=== PATIENT | male | born 2000 | race Caucasian/White ===

== ENCOUNTER 2018-11-11 08:57 | Emergency (ER) | payer SELFPAY ==
[~2018-11-11] VITALS: Ht 152.4 cm; Wt 65.0 kg
[2018-11-11 08:59] VITALS: BP 142/68; PULSE 73; RESP 18; Ht 152.4 cm; Wt 65.0 kg
[2018-11-11] MEDS ORDERED: LIDOCAINE 1% (MDV) 10 ML INJ INJ STA (09:12)
[2018-11-11] MEDS ORDERED: LIDOCAINE 1% (MPF) 5 ML VIAL INFIL ONE (09:30)
[2018-11-11] MEDS ORDERED: DIPHTH/TET/ACEL PERTUSS (ADULT) 0.5 ML VIAL IM* ONE (10:00)
--- NOTE | 2018-11-11 10:32 | ERD ---
ER Documentation Chief Complaint Chief Complaint upper li lac HPI 18-year-old male presenting with lip laceration secondary to a fall. Patient states he was working this morning with his uncle when he slipped walking up the ladder and hit his mouth on the ladder. Patient denies any loss of consciousness. Patient remembers the whole event. Patient denies any allergies to medications. Patient states his pain is only in his lip and that he did not bite his tongue and he did not pass out when he was walking up the ladder that he slipped. The patient did not fall off the ladder he slipped when he went to step up on ladder. ROS All systems reviewed and are negative except as per history of present illness. Medications Home Meds Active Scripts Ibuprofen* (Motrin*) 600 Mg Tab, 600 MG PO Q6, #30 TAB Prov:QUEENIE DASH PA-C 11/11/18 Allergies Allergies: Coded Allergies: No Known Allergy (Unverified , 11/11/18) PMhx/Soc Medical and Surgical Hx: pt denies Medical Hx, pt denies Surgical Hx Hx Alcohol Use: Yes (occasional) Hx Substance Use: No Hx Tobacco Use: No FmHx Family History: No diabetes, No coronary disease, No other Physical Exam Vitals Vital Signs Date Temp Pulse Resp B/P (MAP) Pulse Ox O2 O2 Flow FiO2 Time Delivery Rate 11/11/18 97.7 73 18 142/68 99 08:59 (92) Physical Exam GENERAL: The patient is well-appearing, well-nourished, in no acute distress HEENT:patient has approximately 6 cm laceration extending from his left nostril to the inside of his upper lip. The laceration does not go through the lip completely. Patient has approximately 3 cm laceration on the left lateral side of nostril. There is no deformity to the nostril only laceration. The patie nt's nose is not deviated. Not swollen. No presence of mao signs or raccoon eyes. Patient has no contusions or abrasions to the back of his head patient's maxillofacial bones are intact no crepitus on palpation no pain on palpation. Atraumatic. Conjunctivae are pink. Pupils equal, round, and reactive to light. There is no scleral icterus. Tympanic membranes clear bilaterally. Oropharynx clear. No nystagmus or photophobia. NECK: C-spine is soft and supple. There is no meningismus. There is no cervical lymphadenopathy. NEUROLOGIC: Alert and oriented. Cranial nerves II through V. Motor strength in all 4 extremities with 5 out of 5 strength. Sensation grossly intact. Normal speech and gait. Results 24 hrs Current Medications Medications Dose Sig/Nam Start Time Status Last (Trade) Ordered Route PRN Stop Time Admin Dose Reason Admin Lidocaine 10 ml ONCE STAT 11/11/18 DC HCl INJ 09:12 11/11/18 (Lidocaine 09:33 1% (Mdv) 10 ml) Lidocaine 5 ml ONCE ONCE 11/11/18 DC (Xylocaine INFIL 09:30 11/11/18 1% (Mpf)) 09:31 Diphtheria/ 0.5 ml ONCE ONCE 11/11/18 DC 11/11/18 Tetanus/Acell IM* 10:00 11/11/18 10:30 Pertussis 10:01 (Adacel) Procedures/MDM ED course: Lidocaine 1% Wound irrigation Laceration repair to the lip Laceration repair to left lateral nostril. Tdap given The patient was stable throughout the ED course. The patient and/or family informed of laboratory and diagnostic imaging results throughout the ED course. Procedures: LACERATION: 6cm laceration extending from the left nostril to the patient's upper lip. Patient has second laceration approximately 3 cm on the left lateral side of his nostril. The patient's wounds were anesthetized with 1% lidocaine. The wound was thoroughly irrigated with normal saline. 3 4oh ethanol sutures were placed in the left lateral nostril. The wound was closed. 8 40 ethanol sutures were placed in the patient's lip extending from left nostril to the inside of his lip. The patient was verbally consented prior to procedure. Patient was explained the risks, benefits and alternatives to this procedure. Location: Lip Length: 6 cm Anesthesia: local 1% lidocaine, 5 cc Inspection: The wound was thoroughly explored and no foreign bodies, deep tissue, tendon or structural injuries were noted. Repair: The area was prepared and draped in the usual sterile manner with the wound exposed. [#] sutures were placed with good wound closure and wound approximation. Bleeding was minimal. The patient tolerated the procedure well with no complications. The wound was dressed with bacitracin and sterile gauze. The patient was neurovascularly intact post-procedure. Post-procedural wound care was discussed with the patient. Location: Left lateral nostril Length: 3cm Anesthesia: local 1% lidocaine, 5 cc Inspection: The wound was thoroughly explored and no foreign bodies, deep tissue, tendon or structural injuries were noted. Repair: The area was prepared and draped in the usual sterile manner with the wound exposed. [#] sutures were placed with good wound closure and wound approximation. Bleeding was minimal. The patient tolerated the procedure well with no complications. The wound was dressed with bacitracin and sterile gauze. The patient was neurovascularly intact post-procedure. Post-procedural wound care was discussed with the patient. Medications given in ER: Lidocaine 1% Tdap Patient tolerated medication well with no adverse reactions. Patient reported improvement in pain. Medical decision making: Patient 18-year-old male presenting to the ER for lip laceration and laceration to left lateral nostril. Patient states he slipped when walking up a ladder. Patient denies any loss of consciousness. Patient denies any sensation of passing out. Patient states that he just slipped. Patient denies any head pain dizziness lightheadedness. Physical exam revealed 6 cm laceration that was not completely through the lip but extending from the left lower nostril to the inside of the lip. Patient also had a 3 cm laceration on left lateral nostril. Maxillofacial bones were intact no presence of raccoon eyes or mao signs. Patient denies any allergies to medications. Patient was anesthetized with 1% lidocaine both wounds were thoroughly irrigated with normal saline. The patient lacerations were repaired in a sterile field. Patient received 8 simple interrupted sutures of 4-0 nonabsorbable in the lip laceration. Patient received 3 simple interrupted sutures of 4oh nonabsorbable in the left lateral nostril. Patient was given Tdap. At this time I have low suspicion for retention of foreign body in either wound. I have low suspicion for skull fracture, concussion, airway obstruction, subdermal hematoma, epidural hematoma, dental injury. No CT was ordered because of the low mechanism of injury and patient did not lose consciousness. Patient's lacerations were repaired patient was instructed that he needs to follow-up in 2 days for wound check and have the sutures removed within 5 to 7 days. Patient is being sent home with prescription for ibuprofen for any pain or swelling. Patient was advised to place ice help reduce swelling and keep the wound clean. Patient was advised that if things worsen if it becomes irritated or sutures bust open to return immediately. The patient agrees to the treatment plan and had no further questions upon discharge. Prescription for home: Ibuprofen Discharge: At this time, patient is stable for discharge and outpatient management. I have instructed the patient to follow-up with his\her primary care physician in 1 to 2 days. I have discussed with the patient the possibility of needing to see a specialist for further work-up and imaging studies if symptoms persist. I have instructed the patient to promptly return to the ER for any new or worsening symptoms including increased pain, fever, nausea, vomiting, weakness or LOC. The patient and\or family expressed understanding of and agreement with this plan. All questions were answered. Home care instructions were provided. Disclaimer: Inadvertent spelling and grammatical errors are likely due to EHR\dictation sof tware use and do not reflect on the overall quality of patient care. Also, please note that the electronic time recorded on the note does not necessarily reflect the actual time of the patient encounter. QUEENIE DASH PA-C Nov 11, 2018 10:32
[2018-11-11] MEDS ORDERED: IBUP-1542 PO (10:45)
== END 2018-11-11 11:13 | disposition home or self-care (01) ==
LOC: FTE 08:57
DX: S01.511A Laceration without foreign body of lip, initial encounter (principal); S01.21XA Laceration without foreign body of nose, initial encounter; W18.40XA Slipping, tripping and stumbling without falling, unspecified, initial encounter; Y92.89 Other specified places as the place of occurrence of the external cause; Z23 Encounter for immunization
CPT/HCPCS: 90471; 90715